=== PATIENT | male | born 1975 | race Caucasian/White ===

== ENCOUNTER 2019-08-26 23:39 | Emergency (ER) | payer SELFPAY ==
--- NOTE | 2019-08-27 00:09 | ER Document Report ---
ED General - General Chief Complaint: Overdose Stated Complaint: POSSIBLE OVERDOSE Time Seen by Provider: 08/26/19 23:58 - HPI Notes: Patient is a 43-year-old male who presents to the emergency department after an accidental overdose on heroin. He states he ate some pizza, injected some heroin, and woke up with EMS personnel present. He states it was accidental. He states he does not inject very often, has only been doing so over the last several months. He has absolutely no interest in drug counseling, rehab, or quitting the use of heroin. He denies any suicidal or homicidal ideation, no visual or auditory hallucination. The patient just moved here several months ago. He has a history of high blood pressure, used to be on lisinopril, does not take any medicines now as he does not have a primary care physician in this area. He denies any pain of any sort, no other symptoms at this time. - Related Data Allergies/Adverse Reactions: No Known Allergies Allergy (Unverified 08/26/19 23:47) Home Medications: NON COMPLIANT W/ HTN MEDS Past Medical History - General Information source: Patient - Social History Smoking Status: Current Every Day Smoker Frequency of alcohol use: Occasional Drug Abuse: Heroin Family History: CAD - Cerebral aneurysm, Other Patient has suicidal ideation: No Patient has homicidal ideation: No - Past Medical History Cardiac Medical History: Reports: Hx Hypertension Review of Systems - Review of Systems Neurological/Psychological: See HPI Physical Exam - Vital signs Vitals: Temp 98.2 F 08/26/19 23:39 - Notes Notes: Is a 43-year-old gentleman who appears his stated age, no acute distress. He is mildly disheveled. He is slightly guarded, but overall cooperative with examiner. Vital signs reviewed, please refer to chart. Head is normocephalic, atraumatic. Pupils equal round, reactive to light. They measure 6 mm in diameter bilaterally. Neck is supple without meningismus. Heart is regular rate and rhythm. Lungs are clear to auscultation bilaterally. Abdomen is soft, nontender, normoactive bowel sounds throughout. Extremities without cyanosis, clubbing. Posterior calves are nontender. Peripheral pulses are equal. Skin is warm and dry. Patient has the sequelae of significant IV drug use in bilateral upper extremities, but no significant induration, erythema, or fluctuance is appreciated. Patient is awake, alert, neurological exam is nonfocal. Course - Re-evaluation Re-evalutation: 08/27/19 00:09 Patient presents to the emergency department for evaluation. 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 Patient has expressed no desire to quit using drugs. We will monitor for any signs of respiratory depression, any signs of any coingestions. He is stable at this time. 08/27/19 01:39 Patient remained stable. His pupils remain 6 mm, reactive to light. He is awake, alert, still refusing any sort of substance abuse treatment. At this point the patient is stable. I am awaiting his urine tox screen, but otherwise I will discharge the patient to home. He will be given a mental health formerly [facility] outpatient referral list, which does include outpatient services for substance abuse should he change his mind. Otherwise, I will write him a prescription for the lisinopril 20 mg that he used to take, encouraged him to follow-up with primary care, and return to the ER with worsening or new concerning symptoms of any sort. - Vital Signs Vital signs: Temp Pulse Resp BP Pulse Ox 98.6 F 15 152/107 H 91 L 08/27/19 00:05 08/27/19 01:00 08/27/19 01:01 08/27/19 01:01 - Laboratory Result Diagrams: 08/26/19 23:55 08/26/19 23:55 Laboratory results interpreted by me: 08/26/19 08/26/19 08/27/19 23:55 23:55 01:00 WBC 12.8 H RDW 14.1 H Absolute Monos (auto) 1.6 H Glucose 116 H ALT 54 H Total Protein 8.5 H Urine Protein 30 H Urine Glucose (UA) 50 H Urine Urobilinogen 4.0 H Salicylates < 1.0 L Acetaminophen < 10 L - EKG Interpretation by Me Additional EKG results interpreted by me: 08/27/19 01:41 Sinus mechanism with a rate of 98 bpm. Normal axis and intervals, no acute ST changes concerning for ischemia or infarction. Discharge - Discharge Clinical Impression: Hypertension Heroin overdose Qualifiers: Encounter type: initial encounter Injury intent: accidental or unintentional Qualified Code(s): T40.1X1A - Poisoning by heroin, accidental (unintentional), initial encounter Condition: Stable Disposition: HOME, SELF-CARE Instructions: Narcotic Abuse ([facility]) Additional Instructions: Please quit using heroin. You have been given a list of community outpatient referrals, including multiple mental health facilities, facilities that offer addiction counseling. Seek out care at 1 of these should you change your mind regarding help. Take the lisinopril as directed. Please follow-up with primary care next week. Return to the emergency department with worsening or new concerning symptoms of any sort. Prescriptions: Lisinopril 20 mg PO DAILY #30 tablet
[2019-08-27 00:13] LABS: ABSOLUTE BASOPHILS # (AUTO) 0.1 10^3/uL (0.0-0.2); ABSOLUTE EOSINOPHILS # (AUTO) 0.5 10^3/uL (0.0-0.6); ABSOLUTE LYMPHOCYTES (AUTO) 4.5 10^3/uL (0.5-4.7); ABSOLUTE MONOCYTES (AUTO) 1.6 10^3/uL (0.1-1.4); ABSOLUTE NEUT (AUTO) 6.2 10^3/uL (1.7-8.2); BASOPHILS % (AUTO) 0.6 % (0-2); EOSINOPHILS % (AUTO) 3.8 % (0-6); HEMATOCRIT 42.5 % (37.9-51.0); LYMPHOCYTES % (AUTO) 34.9 % (13-45); MEAN CORPUSCULAR HGB CONC 35.3 g/dL (32.0-36.0); MEAN CORPUSCULAR VOLUME 91 fl (80-97); MONOCYTES % (AUTO) 12.3 % (3-13); PLATELET COUNT 324 10^3/uL (150-450); RED BLOOD COUNT 4.69 10^6/uL (4.35-5.55); RED CELL DISTRIBUTION WIDTH 14.1 % (11.5-14.0); SEGMENTED NEUTROPHILS % (AUTO) 48.4 % (42-78); TOTAL CELLS COUNTED % (AUTO) 100 %; WHITE BLOOD COUNT 12.8 10^3/uL (4.0-10.5)
[2019-08-27 00:30] LABS: ALBUMIN 4.3 g/dL (3.5-5.0); ALKALINE PHOSPHATASE 93 U/L (38-126); ANION GAP 10 (5-19); ASPARTATE AMINO TRANSFERASE 36 U/L (17-59); BILIRUBIN,DIRECT 0.1 mg/dL (0.0-0.4); BILIRUBIN,TOTAL 0.5 mg/dL (0.2-1.3); BLOOD UREA NITROGEN 17 mg/dL (7-20); CALCIUM 9.7 mg/dL (8.4-10.2); CARBON DIOXIDE 28 mmol/L (22-30); CHLORIDE 101 mmol/L (98-107); GLUCOSE 116 mg/dL (75-110); TOTAL PROTEIN 8.5 g/dL (6.3-8.2)
[2019-08-27 00:32] LABS: ACETAMINOPHEN < 10 ug/mL (10-30); ALCOHOL < 10 mg/dL (NONE DETECTED); SALICYLATE < 1.0 mg/dL (2.0-20.0)
[2019-08-27 01:29] LABS: APPEARANCE,URINE SLIGHTLY-CLOUDY; BILIRUBIN,URINE NEGATIVE (NEGATIVE); COLOR,URINE YELLOW; GLUCOSE, URINE 50 mg/dL (NEGATIVE); KETONES,URINE NEGATIVE (NEGATIVE); LEUKOCYTE ESTERASE,URINE NEGATIVE (NEGATIVE); NITRITE,URINE NEGATIVE (NEGATIVE); PROTEIN,URINE 30 mg/dL (NEGATIVE); URINE SPECIFIC GRAVITY 1.024
[2019-08-27 01:50] LABS: URINE BARBITURATES SCREEN NEGATIVE; URINE BENZODIAZEPINES SCREEN NEGATIVE; URINE COCAINE SCREEN NEGATIVE; URINE METHADONE SCREEN NEGATIVE; URINE PHENCYCLIDINE SCREEN NEGATIVE
[2019-08-27 02:09] LABS: URINE MARIJUANA (THC) SCREEN UNCONFIRMED POSITIVE
[2019-08-27 02:33] VITALS: BP 147/95
--- NOTE | 2019-08-27 15:27 | EKG REPORT ---
SEVERITY:- ABNORMAL ECG - SINUS RHYTHM LEFT ATRIAL ABNORMALITY : Confirmed by: Radha Alvarenga MD 27-Aug-2019 15:27:09
== END 2019-08-27 02:31 | disposition home or self-care (01) ==
LOC: EDBD 23:39 → ER 23:39
DX: T40.1X1A Poisoning by heroin, accidental (unintentional), initial encounter (principal); Y92.59 Other trade areas as the place of occurrence of the external cause; F17.200 Nicotine dependence, unspecified, uncomplicated; I10 Essential (primary) hypertension; Z91.14 Patient's other noncompliance with medication regimen
CPT/HCPCS: 36415; 80048; 80053; 80307; 81001; 85025; 93005; 93010; 99284